=== PATIENT | male | born 1940 | race Caucasian/White ===

== ENCOUNTER 2017-08-12 11:30 | Inpatient (IN) ==
[~2017-08-12 11:30] MED LIST: ACETAMINOPHEN 500 MG TABLET PO ONE; DEXAMETHASONE 4 MG/ML INJECTION IVP ONE; EPINEPHrine PF 0.25 MG, BUPIVACAINE 0.25% PF 30 ML, MORPHINE SULFATE 15 MG, KETOROLAC I... OPSITE ONE; FAMOTIDINE PB 20 MG/50 ML BAG IV ONE; LIDOCAINE 1% (10mg/ml) 2mL INJ PF SDV ID ONE; MELOXICAM 15 MG TABLET PO ONE; METOCLOPRAMIDE 10mg/2ml INJECTION IVP ONE; NOZIN NASAL SWAB NAS ONE; ONDANSETRON 4 MG/2 ML INJECTION IVP ONE; TRANEXAMIC ACID 1,000 MG in NS 100 ML IV ONE
[2017-08-12 11:57] VITALS: BMI 24.1
[2017-08-12] MEDS: LR 1,000 ML IV SCH ×2 (12:09→16:18)
[2017-08-12] MEDS ORDERED: CEFAZOLIN 1 G INJECTION IVP ONE (12:39)
--- NOTE | 2017-08-12 14:05 | Anesthesia Preoperative Report ---
Anesthesia Preoperative Record - Date and Time Date: 08/12/17 Preoperative Diagnosis: RT TKA M17.11 Proposed Procedure: RIght TKA NPO Since Date: 08/11/17 NPO Since Time: 18:30 Allergies/Adverse Reactions: Allergies Allergy/AdvReac Type Severity Reaction Status Date / Time codeine Allergy Unknown HYPERACTIVE Verified 08/12/17 11:57 - Vital Signs Vital Signs: Temperature 98.3 F 08/12/17 11:55 Pulse Rate 80 08/12/17 12:02 Respiratory Rate 16 08/12/17 11:55 Blood Pressure 144/69 H 08/12/17 11:55 Pulse Oximetry 95 08/12/17 11:55 Height and Weight: Height 5 ft 9 in Weight 74.2 kg Body Mass Index 24.1 - Medications Inpatient Medications: Current Medications Lactated Ringer's (Lactated Ringers) 1,000 mls @ 50 mls/hr IV .Q20H LILIANA Last Admin: 08/12/17 12:09 Dose: 50 mls/hr Sodium Chloride (Iv Flush) 10 - 80 ml IV PRN PRN PRN Reason: Flushing Home Medications: Home Medications Medication Instructions Recorded Confirmed Type Ascorbic Acid [Vitamin C] 500 mg PO DAILY #0 12/26/12 08/12/17 History Ubidecarenone [Co Q-10] 100 mg PO DAILY #0 12/26/12 08/12/17 History aspirin 81 mg tablet,delayed 81 mg PO DAILY tab 05/04/17 08/11/17 History release lisinopril 20 mg tablet 10 mg PO BID #0 tab 06/01/17 08/12/17 History multivitamin tablet 1 tab PO DAILY tab 06/01/17 08/12/17 History potassium 99 mg tablet 99 mg PO DAILY tab 06/01/17 08/12/17 History Cardizem (diltiazem) 120 mg tablet 60 mg PO BID 90 Days #90 tab 06/29/17 History Cholecalciferol (Vitamin D3) 1 tab PO DAILY 08/05/17 08/12/17 History [Vitamin D3] Is Patient on Beta Brenda?: No - Medical History Respiratory: DENIES: Asthma, Bronchitis, Chronic Obstructive Pulmonary Disease (COPD), Dyspnea, Orthopnea, Pulmonary Embolism, Pneumonia, Upper Respiratory Infection, Pulmonary Edema, Sleep Apnea, Tuberculosis, Other Cardiovascular: Reports: Hypertension DENIES: Abnormal EKG, Angina, Arrhythmia, Congestive Heart Failure, Coronary Artery Disease, Heart Murmur, Hypotension, High Cholesterol, Myocardial Infarction, Rheumatic Fever, Valvular Heart Disease, Other Gastrointestional: DENIES: Obstructive Bowel, Hepatitis, Cirrhosis, Nausea or Vomiting Present, Gastroesophageal Reflux Disease, Gastrointestinal Bleeding, Hiatal Hernia, Ulcer , Morbid Obesity, Other Neuro/Musculoskeletal: Denies: HX.MS.OSAR, Back Problems, Cerebrovascular Accident, Depression, Headaches, Loss of Consciousness, Muscle Weakness, Neuromuscular Disorder, Paralysis, Paresthesia, Syncope, Seizures, Other Renal/Endocrine: DENIES: Diabetes Mellitus Type 1, Diabetes Mellitus Type 2, Renal Failure, Dialysis, Thyroid Disease, Weight Loss, Weight Gain, Other Other History: DENIES: Anesthesia Reactions, Now, Blood Transfusions, Chemotherapy , Cancer, Hemophilia, Malignant Hyperthermia, Sickle Cell Disease, Other - Surgical History GI Surgery/Treatments: Reports: Hernia Repair (autsin inguinal; umb hernia repair) , Colonoscopy (diverticulosis), EGD, Other (tyler rectal abscess) Musculoskeletal Surgery/Tx: Reports: Other (Lt calcaneous; distal resect. of clavicle) Anesthesia Reactions: None Hx Family Anesthesia Reaction: No History of Motion Sickness: No - Social History Smoking Status: Never smoker Hx Chewing Tobacco Use: No Second Hand Exposure: No Substance Use Type: does not use Alcohol Intake: current Alcohol Intake Frequency: a few times a week - Pertinent Findings EKG: Sinus Rhythm - Physical Exam Respiratory Exam: Present: lungs clear, bilateral breath sounds equal Cardiovascular Exam: Present: regular rate and rhythm, no murmur - Airway Assessment Mallampati Score: II TMD: 3 Fingerbreadths Neck Extension: good Overall Assessment: no airway concerns - ASA ASA Score: 2 - Plan Regional/Trunk Block: Spinal Peripheral Nerve Block: Saphenous-Right - Discussion Discussion: Discussed risks/options/alternatives of anesthesia and questions answered. Patient consents. Nursing pain assessment noted. Present for Discussion: family member Attestation Statement: Prior to the delivery of any anesthetic medication, I examined the patient, developed the plan, obtained the patient's consent and discussed the risk and benefits of the procedure with the patient/guardian. - Additional Information Seen by Anesthesia: Yes
[2017-08-12] MEDS ORDERED: VANCOMYCIN 1,000 MG INJECTION ONE (14:08)
[2017-08-12] MEDS ORDERED: MIDAZOLAM 2mg/2ml INJECTION ONE (14:24)
[2017-08-12] MEDS ORDERED: FentaNYL 100 MCG/2 ML INJECTION ONE (14:24)
[2017-08-12] MEDS ORDERED: PROPOFOL 500 MG/50 ML VIAL IV ONE (14:37)
[2017-08-12] MEDS ORDERED: VANCOMYCIN 1,000 MG INJECTION IAR ONE (15:09)
[2017-08-12] MEDS ORDERED: ROPIVACAINE 0.5% (5mg/ml) 30ml INJ ONE (15:40)
--- NOTE | 2017-08-12 15:59 | Operative Note ---
- Procedure Preoperative Diagnosis: Right knee primary degenerative joint disease Postoperative Diagnosis: Same as preoperative diagnosis. Surgeon: Kb Duffy MD [employer] Supervisor: Julio Cesar Rodríguez Complications: None. Anesthesia: Spinal. Estimated Blood Loss: See Anesthesia Record. Fluids: Please see Anesthesia Record. Description of Procedure: Mr. Cancino and his right knee were identified and marked in the preoperative holding area. He was brought back to the operating suite after a saphenous nerve block was placed in the preoperative holding area. Spinal anesthetic was administered and he was placed supine on the operating table. The right lower extremity was prepped and draped in my normal sterile fashion. Timeout was performed. The Traction robot was used during the surgery. He had a fixed varus deformity with a 8 flexion contracture. A standard anterior midline incision followed by medial parapatellar arthrotomy was performed. Anterior fat pad and meniscus were removed. The patella was resurfaced to a size 32. Tibial and femoral arrays were placed both within the original incision. Checkpoints were then placed both in the femur and the tibia. The bone was then registered with the Traction robot. Osteophytes were removed and gaps were captured both 90 and 0 with correction. He was balanced disease in the Traction software by adding degrees of external rotation to the femur as well as moving the femoral cut distally. We achieved 19 mm gaps throughout. The Traction robotic arm was then used to assist with the bone cuts. Posterior osteophytes and remaining meniscus were removed. Trial components were placed. We used a 6 femur and a 5 tibia with a 11 mm spacer. He tracked well and was well balanced throughout range of motion. The leg was exsanguinated and the tourniquet inflated to 250 mmHg. The bone was prepared for cementing and components were cemented into place and allowed to cure in extension. The tourniquet was let down and hemostasis obtained with electrocautery. The knee was ranged one more time to ensure good stability, balance and patellar tracking. 1 g of vancomycin powder was then placed into the knee joint. The capsulotomy was then closed with #1 Vicryl. I then left my assistant production editor to close the subcutaneous tissue with 2-0 Vicryl. Running 4-0 Monocryl will be used in the subcuticular layer. Dermabond will be used on the skin followed by sterile dressing. After drapes are removed patient will be taken to recovery room under the care of anesthesia.
--- NOTE | 2017-08-12 16:35 | Anesthesia Procedure Note ---
Peripheral Nerve Blockade - Procedure Physician: Nils Duffy MD Date: 08/12/17 Surgical Procedure: Right TKA Discussion: Discussed risks/options/alternatives of anesthesia and questions answered. Patient consents. Nursing pain assessment noted. Block Start: 16:30 Block Stop: 16:31 Blocked Employed: Adductor Canal Indication: Post-Operative Pain Approach: Right Side Confirmed Position: Supine Patient: Consent, Risks/Benefits Discussed, Informed, Post Block Act. Discussed IV Sedation: No (spinal intact) Initial Vital Signs: Temperature 98.3 F 08/12/17 11:55 Temperature Source Oral 08/12/17 11:55 Pulse Rate 79 08/12/17 11:55 Respiratory Rate 16 08/12/17 11:55 Blood Pressure 144/69 H 08/12/17 11:55 Blood Pressure Mean 94 08/12/17 11:55 Blood Pressure Position Sitting 08/12/17 11:55 Pulse Oximetry 95 08/12/17 11:55 Oxygen Delivery Method 08/12/17 11:55 Post Vital Signs: Temperature 98.3 F 08/12/17 11:55 Pulse Rate 80 08/12/17 12:02 Respiratory Rate 16 08/12/17 11:55 Blood Pressure 144/69 H 08/12/17 11:55 Pulse Oximetry 95 08/12/17 11:55 Initial Pain Pain Score: 0 Post Block Pain Score: 0 Prep: Chlorhexadine/ETOH Ultrasound Used?: Yes - Injectate Ropivacaine (%): 0.5 Ropivacaine (mL): 15 Injection: Injection made incrementally with constant monitoring and aspiration every ml
--- NOTE | 2017-08-12 16:36 | Anesthesia Postoperative Note ---
- Date and Time Date: 08/12/17 Time: 16:35 - Status Patient Participated in Evaluation: Patient Participated in Person Vital Signs: Temperature 98.3 F 08/12/17 11:55 Pulse Rate 80 08/12/17 12:02 Respiratory Rate 16 08/12/17 11:55 Blood Pressure 144/69 H 08/12/17 11:55 Pulse Oximetry 95 08/12/17 11:55 Respiratory Function: Airway Patent, Regular Respirations Cardiovascular Function: Regular Pulse EKG: Sinus Rhythm Mental Status: Alert and Oriented Pain Intensity: 0 Hydration: IV Infusing Complications During Recover: None Apparent - Follow-Up Instructions Instructions: Per Surgeon
[2017-08-12] MEDS ORDERED: LORazepam 1 MG TABLET PO PRN (17:03)
[2017-08-12] MEDS ORDERED: NAPROXEN 220 MG TABLET PO PRN (17:03)
[2017-08-12] MEDS ORDERED: DiphenhydrAMINE 50 MG/ML INJECTION IVP PRN (17:03)
[2017-08-12] MEDS ORDERED: DiphenhydrAMINE 25 MG CAPSULE PO PRN (17:03)
[2017-08-12] MEDS ORDERED: NOZIN NASAL SWAB NAS ONE (17:03)
[2017-08-12] MEDS ORDERED: ONDANSETRON 4 MG/2 ML INJECTION IVP PRN (17:03)
--- NOTE | 2017-08-12 17:05 | XRay Report ---
Indication: postoperative image PROCEDURE: XR knee RT 2V: Encounter: Initial Comparison: November 24, 2016 Findings: Postoperative changes of right total knee replacement are seen. There is expected postoperative subcutaneous gas. No evidence of hardware failure or acute fracture. No retained radiopaque surgical instruments or sponges. Overlying material causing artifact. Impression: New right total knee prosthesis without evidence of immediate complication. .
[2017-08-12] MEDS: NS 1,000 ML IV SCH (17:27)
[2017-08-12] MEDS: ACETAMINOPHEN 325 MG TABLET PO SCH ×2 (17:28→20:23)
[2017-08-12] MEDS ORDERED: SALINE FLUSH 10ml SYRINGE IV PRN (18:07)
[2017-08-12] MEDS: LISINOPRIL 20 MG TABLET PO SCH (20:21)
[2017-08-12] MEDS: DiltiaZEM IR 60 MG TABLET PO SCH (20:22)
[2017-08-12] MEDS: DOCUSATE SODIUM 100 MG CAPSULE PO SCH (20:22)
[2017-08-12] MEDS: NOZIN NASAL SWAB NAS SCH ×2 (20:22→22:07)
[2017-08-12] MEDS: ASPIRIN *EC* 81 MG TABLET PO SCH (20:22)
[2017-08-12] MEDS: DEXAMETHASONE 4 MG/ML INJECTION IVP SCH (20:28)
[2017-08-12] MEDS: CEFAZOLIN 2 G in NS 100 ML IV SCH ×2 (20:34→22:07)
[2017-08-12] MEDS ORDERED: SENNOSIDES 8.6 MG TABLET PO SCH (21:00)
[2017-08-13] MEDS: TRAMADOL 50 MG TABLET PO PRN ×2 (01:03→08:17)
[2017-08-13] MEDS: DEXAMETHASONE 4 MG/ML INJECTION IVP SCH (05:04)
[2017-08-13] MEDS: NOZIN NASAL SWAB NAS SCH (05:04)
[2017-08-13] MEDS: CEFAZOLIN 2 G in NS 100 ML IV SCH ×2 (05:09→07:11)
[2017-08-13] MEDS: NS 1,000 ML IV SCH (07:10)
[2017-08-13 07:38] VITALS: BP 148/73; PULSE 82; RESP 18; TEMP 98.2; O2SAT 97
[2017-08-13] MEDS: DOCUSATE SODIUM 100 MG CAPSULE PO SCH (08:16)
[2017-08-13] MEDS: DiltiaZEM IR 60 MG TABLET PO SCH (08:17)
[2017-08-13] MEDS: LISINOPRIL 20 MG TABLET PO SCH (08:17)
[2017-08-13] MEDS: ASPIRIN *EC* 81 MG TABLET PO SCH (08:17)
[2017-08-13] MEDS: ACETAMINOPHEN 325 MG TABLET PO SCH (08:17)
[2017-08-13] MEDS ORDERED: POLYETHYL GLYCOL 3350 17gm PACKET PO SCH (09:00)
[2017-08-13] MEDS ORDERED: ASCORBIC ACID 500 MG TABLET PO SCH (09:00)
--- NOTE | 2017-08-13 09:22 | Orthopedic Progress Note ---
Date: Subjective/Severity of Illness: Doing well. Pain is controlled. Has been up with good tolerance. Expects to go home today. Orthopedic Objective PO Vital signs: Temperature 98.2 F 08/13/17 07:37 Pulse Rate 82 08/13/17 07:37 Respiratory Rate 18 08/13/17 07:37 Blood Pressure 148/73 H 08/13/17 07:37 Pulse Oximetry 97 08/13/17 07:37 Height and Weight: Height 5 ft 9 in Weight 168 lb 6.931 oz Body Mass Index 24.1 - Constitutional General Appearance: Present: alert, no acute distress - Respiratory Exam Present: non-labored - Extremities Exam Extremities: Present: pulses intact. Absent: calf tenderness - Surgical Site Incision: Mepilex dressing intact, no drainage - Neurological Exam Present: no deficits - Labs Result Diagrams: 08/13/17 04:03 08/13/17 04:03 Abnormal lab results 08/13/17 08/13/17 Range/Units 04:03 04:03 WBC 17.8 H (4.5-11.0) T/MM3 RBC 3.94 L (4.50-5.90) M/MM3 Hgb 12.7 L (13.5-17.5) GM/DL Hct 38.2 L (41-53) % BUN 27.0 H (9-20) MG/DL Glucose 148 H (75-110) MG/DL H & H 08/13/17 Range/Units 04:03 Hgb 12.7 L (13.5-17.5) GM/DL Hct 38.2 L (41-53) % Orthopedic Assessment and Plan (1) Primary osteoarthritis of right knee Status: Acute Assessment and Plan: Rt TKA 08/12/17 Current anti-coagulation protocol for VTE prophylaxis. SCD's. PT/OT services to improve independent function. Discharge Planning per Case Management. - Anticoagulation Therapy Anticoagulation: ASA 81 mg PO BID x6 weeks Hospital Course Summary Disclaimer: The visit summary below is not to be considered part of the above Progress Note.
--- NOTE | 2017-08-13 10:25 | Discharge Summary ---
Orthopedic Discharge Info Date of admission: 08/12/17 11:30 Anticipated date of discharge: 08/13/17 Primary care physician: Clark Neal MD Attending Physician: Nils Duffy MD Consults: 08/12/17 11:46 Consult to Anesthesiology [CONS] Routine Consulting Provider: ANIKA Obregon Reason For Exam: Preoperative Assessment 08/12/17 17:03 Case Management Consult [CONS] Routine Reason For Exam: Discharge Planning DME-Walker [CONS] Routine Height: 5 ft 9 in Weight: 163 lb 9.328 oz Comment: change dressing in 2 weeks Total Joint Outpatient Therapy [CONS] Routine Comment: change dressing in 2 weeks - Discharge Diagnosis (1) Primary osteoarthritis of right knee Status: Acute - Procedures Procedures: Rt TKA - Laboratory Result Diagrams: 08/13/17 04:03 08/13/17 04:03 Laboratory: Abnormal lab results 08/13/17 08/13/17 Range/Units 04:03 04:03 WBC 17.8 H (4.5-11.0) T/MM3 RBC 3.94 L (4.50-5.90) M/MM3 Hgb 12.7 L (13.5-17.5) GM/DL Hct 38.2 L (41-53) % BUN 27.0 H (9-20) MG/DL Glucose 148 H (75-110) MG/DL H & H 08/13/17 Range/Units 04:03 Hgb 12.7 L (13.5-17.5) GM/DL Hct 38.2 L (41-53) % Orthopedic Discharge HPI - HPI Comments This patient was admitted for elective surgical tx of end stage degenerative joint disease that failed to respond to conservative treatment. Further details of this is found in the admission H&P. Orthopedic Hospital Course Hospital course: 08/13/17 10:27 After appropriate preoperative clearance and signing of operative consent, the patient was given IV antibiotics, according to orthopedic protocol. The patient was taken to the operating room and underwent elective joint arthroplasty. Following surgery, antibiotics were discontinued less than 24 hours according to joint protocol. Appropriate anticoagulants were initiated and SCDs added for DVT prevention. The dressing was clean, dry, and intact. Pain control was obtained via multimodal approach. Bowel motivation addressed with scheduled and PRN medications. Early mobilization was initiated through PT services. Discharge arrangements made by a collaborative effort between the patient and Case Management. Follow-up is scheduled in 2-3 weeks. Discharge instructions given by orthopedic providers and nursing staff at discharge. Discharge condition was good. Ongoing care required?: No Discharge Plan - Med Rec/Dispo Referrals/Follow Up: Nils Duffy MD [Physician] - 09/06/17 3:15 pm Amparo Instructions: [facility] [place] Ortho Postop Instructions Additional Instructions: [facility] ON 08/16/2017 AT 8:30AM FOR PHYSICAL THERAPY EVAL WITH ELYSSA. PLEASE COMPLETE THE PAPERWORK IN THE [facility] [place] FOLDER PRIOR TO THE APPOINTMENT. PHONE [phone] Prescriptions: New Docusate Sodium [Colace] 100 mg PO BID capsule Milk of Magnesia [Mom] 30 ml PO DAILY udc Naproxen [Aleve] 440 mg PO BID PRN tablet PRN Reason: Pain Tramadol [Ultram] 50 - 100 mg PO Q6H PRN #60 tab PRN Reason: Pain Acetaminophen [Tylenol] 650 mg PO QID tablet Aspirin *EC* [Ecotrin] 81 mg PO BID #90 tab PEG 3350 17gm PACKET [Miralax] 17 gm PO DAILY packet Continue Ascorbic Acid [Vitamin C] 500 mg PO DAILY #0 Cholecalciferol (Vitamin D3) [Vitamin D3] 1 tab PO DAILY Ubidecarenone [Co Q-10] 100 mg PO DAILY #0 aspirin 81 mg tablet,delayed release 81 mg PO DAILY tab potassium 99 mg tablet 99 mg PO DAILY tab Cardizem (diltiazem) 120 mg tablet 60 mg PO BID 90 Days #90 tab lisinopril 20 mg tablet 10 mg PO BID #0 tab multivitamin tablet 1 tab PO DAILY tab - Disposition 01 Discharged Home, Self-Care
[2017-08-13] MEDS ORDERED: SENNOSIDES 8.6 MG TABLET PO PRN (16:16)
[2017-08-14] MEDS ORDERED: BISACODYL 10 MG SUPPOSITORY RECTALLY SCH (20:00)
== END 2017-08-13 12:00 | disposition home or self-care (01) | DRG 470 ==
LOC: SRG 11:30
PROVIDERS: ADMIT Orthopaedic Surgery; ATTEND Orthopaedic Surgery